=== PATIENT | male | born 1955 | race Caucasian/White ===

== ENCOUNTER → 2020-07-21 08:36 | Outpatient (BNVA) | payer OTHER, SELFPAY | PROVIDERS: Visit Provider Psychiatry & Neurology Psychiatry | DX: F10.20 Alcohol dependence, uncomplicated (principal) | CPT/HCPCS: 80053; 82150; 83690; 84443; 85025; 99204 ==

== ENCOUNTER → 2020-08-06 08:05 | Outpatient (BNVA) | payer OTHER, SELFPAY | PROVIDERS: Visit Provider Psychiatry & Neurology Psychiatry | DX: F10.20 Alcohol dependence, uncomplicated (principal) | CPT/HCPCS: 99213 ==

== ENCOUNTER 2020-10-01 15:20 | Outpatient (CLI) | payer OTHER, SELFPAY ==
--- NOTE | 2020-10-01 15:30 | US_ITS ---
WS: [id number] US soft tissue/extremity 25207 REASON FOR EXAM: FALL/HEMATOMA OF L THIGH FINDINGS: In the left lateral thigh in the region of clinically identifiable abnormality there is an elliptical sonolucency with complex internal echoes. The abnormality measured 5.79 x 1.5 to by 4.95 cm. There was no significant color flow Doppler signal either within the lesion or adjacent to it. No other findings were noted. US/US soft tissue/extremity 71301 IMPRESSION: Focal finding in the left lateral thigh as above. The findings are compatible w ith a hematoma.
== END 2020-10-01 15:21 | disposition home or self-care (01) ==
LOC: RAD 15:23
PROVIDERS: PCP Family Medicine; Visit Provider Registered Nurse
DX: S70.12XA Contusion of left thigh, initial encounter (principal); X58.XXXA Exposure to other specified factors, initial encounter; Z02.6 Encounter for examination for insurance purposes
CPT/HCPCS: 76882